=== PATIENT | female | born 1970 | race Caucasian/White ===

== ENCOUNTER → 2016-04-11 | Outpatient (CLI) | payer OTHER ==
[~2016-04-11] MED LIST: CLEOCIN150 M1; HYDROCODONE-APA1 T56; OXYCODONE HCL10 M1 PO; PHENERGAN25 MG PO; SYNTHROID0.1 MG; ZOFRAN ODT4 MG PO
--- NOTE | ~2016-04-11 | US128 ---
[id number] [address] [address] [id number] O MR#: [id number] Acc #: [id number] NAME: SMOOTH NOWAK : 1970 SEX: F STUDY DATE/TIME: 04/11/2016 10:38 UNIT: [facility] ROOM: STUDY DESCRIPTION: Thyroid Attending Physician: Tasha Carvajal M.D. Referring Physician: Tasha Carvajal M.D. Ordering Physician: Tasha Carvajal M.D. Primary Care Physician: Tasha Carvajal M.D. MEDICAL IMAGING REPORT This report is preliminary unless electronic signature is present. EXAM Ultrasound thyroid, 04/11/2016 HISTORY 45-year-old female with history of hypothyroidism diagnosed in 2005. Thyromegaly on physical examination. TECHNIQUE High-resolution ivory-scale ultrasound imaging of the thyroid gland along with limited color-flow Doppler vascular imaging. THYROID SIZE: The right thyroid lobe is mildly enlarged when compared with the left. Right lobe 5.0 x 2.0 x 1.7 cm. Left lobe 4.2 x 1.4 x 1.2 cm. Thyroid isthmus thickness 4 mm. FINDINGS Thyroid parenchyma is diffusely heterogeneous having a pattern suggesting chronic thyroiditis. There is mild thyroid parenchymal hyperemia on color flow Doppler imaging. No thyroid nodule or other focal lesion is identified. IMPRESSION 1. Thyroid gland is at the upper limits of normal in size with the right lobe larger than the left. 2. Diffusely heterogeneous thyroid parenchyma having an appearance compatible with chronic thyroiditis, correlate clinically. 3. No thyroid nodule or other focal thyroid lesion is demonstrated. 1. Dictated by... Pako Richey M.D. THIS IS AN ELECTRONICALLY VERIFIED REPORT Pako Richey M.D. at 04/22/2016 2:10 PM SINGH/destiny TD: 04/11/2016 19:16 JOB #: [id number] MEDICAL IMAGING REPORT
== END | disposition home or self-care (01) ==
LOC: SGUS 10:11
DX: E03.9 Hypothyroidism, unspecified (principal)
CPT/HCPCS: 76536